=== PATIENT | male | born 1945 | race African-American/Black ===

== ENCOUNTER 2020-08-28 13:16 | Emergency (ER) | payer OTHER ==
[2020-08-28 13:52] VITALS: BMI 16.9
[2020-08-28] MEDS ORDERED: ONDANSETRON 4 MG/2 ML VIAL IVPUSH ONE (16:30)
[2020-08-28] MEDS ORDERED: LACTATED RINGERS SOLUTION 1000 ML INFUS.BAG IV ONE (16:30)
[2020-08-28] MEDS ORDERED: ONDANSETRON 4 MG/2 ML VIAL ONE (16:59)
[2020-08-28 17:29] LABS: BASO % 1.1 % (0-2.0); EOS % 2.2 % (0-4.5); HEMATOCRIT 39.6 % (35.4-49); HEMOGLOBIN 13.1 GM/dL (11.7-16.9); LYMPH % 26.9 % (8-40); MCHC 33.2 g/dl (32.0-35.9); MEAN CELL VOLUME 87.4 fl (80-96); MEAN PLT VOLUME 7.7 fl (7.5-11.1); MONO % 6.7 % (3.8-10.2); NEUT % 63.1 % (42.8-82.8); PLATELET COUNT 267 K/MM3 (134-434); RBC 4.53 M/mm3 (4.00-5.60); RDW 15.9 % (11.9-15.9)
[2020-08-28 17:45] LABS: CHLORIDE 104 mmol/L (98-107); SODIUM 139 mmol/L (136-145)
[2020-08-28 17:47] LABS: CALCIUM 9.9 mg/dL (8.5-10.1)
[2020-08-28 17:48] LABS: ALBUMIN 3.8 g/dl (3.4-5.0); ANION GAP 5 MMOL/L (8-16); BLOOD UREA NITROGEN 21.2 mg/dL (7-18); CO2 29 mmol/L (21-32); GLUCOSE,RANDOM 98 mg/dL (74-106); LIPASE 138 U/L (73-393)
[2020-08-28 17:50] LABS: SGOT/AST 16 U/L (15-37); SGPT/ALT 21 U/L (13-61)
[2020-08-28 17:51] LABS: CREATININE 1.1 mg/dL (0.55-1.3)
[2020-08-28 17:53] LABS: ALK PHOS 98 U/L (45-117); BILIRUBIN,TOTAL 0.4 mg/dL (0.2-1); TOT PROT 7.7 g/dl (6.4-8.2)
[2020-08-28 19:41] VITALS: BP 133/76; PULSE 89; TEMP 98
== END 2020-08-28 20:42 | disposition home or self-care (01) ==
LOC: JER 13:16
PROC: 3E033GC Introduction of Other Therapeutic Substance into Peripheral Vein, Percutaneous Approach (ICD-10-PCS; principal; 2020-08-28)
DX: R11.2 Nausea with vomiting, unspecified (principal)
CPT/HCPCS: 36415; 71046-TC-FY; 74177-TC; 80053; 82550; 83690; 84484; 85025; 93005; 93010; 96374; 99285-25; C9803; Q9967; U0003; U0005

== ENCOUNTER 2023-05-26 14:58 | Inpatient (IN) | payer MEDICARE, OTHER ==
[2023-05-26] MEDS ORDERED: ACETAMINOPHEN 1000 MG/100 ML BAG IVPB ONE (16:46)
[2023-05-26] MEDS ORDERED: ACETAMINOPHEN INJECTION 100 ML IVPB ONE (17:13)
[2023-05-26 17:14] LABS: HEMATOCRIT 42.8 % (35.4-49); HEMOGLOBIN 13.9 GM/dL (11.7-16.9); MCH 29.2 pg (25.7-33.7); MCHC 32.4 g/dl (32.0-35.9); MEAN CELL VOLUME 90.1 fl (80-96); MEAN PLT VOLUME 8.2 fl (7.5-11.1); PLATELET COUNT 395 10^3/uL (134-434); RBC 4.75 M/mm3 (4.00-5.60); RDW 14.6 % (11.9-15.9); WHITE BLOOD COUNT 21.3 K/mm3 (4.0-10.0)
[2023-05-26 17:21] LABS: INR 1.29 (0.83-1.09); PROTHROMBIN TIME (PATIENT) 14.9 SEC (9.7-13.0)
[2023-05-26 17:23] LABS: ACTIVATED PTT 29.3 SECONDS (25.2-36.5)
[2023-05-26 17:42] LABS: CHLORIDE 122 mmol/L (98-107); POTASSIUM 3.9 mmol/L (3.5-5.1); SODIUM 156 mmol/L (136-145)
[2023-05-26 17:44] LABS: CALCIUM 9.7 mg/dL (8.5-10.1)
[2023-05-26 17:45] LABS: ALBUMIN 2.2 g/dl (3.4-5.0); ANION GAP 6 mmol/L (4-13); BLOOD UREA NITROGEN 31.6 mg/dL (7-18); CO2 28 mmol/L (21-32); GLUCOSE,RANDOM 134 mg/dL (74-106)
[2023-05-26 17:48] LABS: CREATININE 1.1 mg/dL (0.55-1.3); SGOT/AST 14 U/L (15-37); SGPT/ALT 13 U/L (13-61)
[2023-05-26 17:49] LABS: TOT PROT 7.6 g/dl (6.4-8.2)
[2023-05-26 17:50] LABS: BILIRUBIN,TOTAL 0.5 mg/dL (0.2-1)
[2023-05-26 17:51] LABS: ALK PHOS 105 U/L (45-117)
[2023-05-26 17:54] LABS: ANISOCYTOSIS 2+; MACROCYTOSIS 0
[2023-05-26] MEDS ORDERED: LACTATED RINGERS SOLUTION 1,000 ML/1,000 ML INFUS.BAG IV STA (17:55)
[2023-05-26] MEDS ORDERED: AZITHROMYCIN IVPB 500 MG in DEXTROSE 5%-WATER - 250 ML IVPB ONE (17:57)
[2023-05-26] MEDS ORDERED: CEFTRIAXONE 1 GM in DEXTROSE 5%-WATER - 100 ML IVPB ONE (17:57)
[2023-05-26] MEDS ORDERED: CEFTRIAXONE 1 GM/50 ML BAG ONE (18:26)
[2023-05-26] MEDS ORDERED: OSELTAMIVIR PHOSPHATE 75 MG CAPSULE PO ONE (22:30)
[2023-05-26] MEDS: QUEtiapine FUMARATE 25 MG TABLET PO SCH (23:00)
[2023-05-26] MEDS ORDERED: AZITHROMYCIN IVPB 500 MG/250 ML BAG IVPB ONE (23:02)
[2023-05-26] MEDS ORDERED: SODIUM PHOSPHATE/NA BIPHOS 133 ML ENEMA RC ONE (23:31)
[2023-05-26] MEDS ORDERED: SODIUM PHOSPHATE/NA BIPHOS 133 ML ENEMA PR ONE (23:31)
[2023-05-26] MEDS ORDERED: ACETAMINOPHEN 1000 MG/100 ML BAG IVPB PRN (23:36)
[2023-05-26 23:59] LABS: EPI CELLS 25 /uL (0-25.1); HYALINE CASTS 3 /uL (0-3.1); PH,URINE 5.5 (5.0-8.0); URINE APPEARANCE CLEAR; URINE BACTERIA 3 /uL (0-1359); URINE BILIRUBIN NEGATIVE (NEGATIVE); URINE COLOR YELLOW; URINE GLUCOSE (UA) NEGATIVE (NEGATIVE); URINE KETONE NEGATIVE (NEGATIVE); URINE LEUK ESTERASE NEGATIVE (NEGATIVE); URINE NITRITE NEGATIVE (NEGATIVE); URINE PROTEIN 2+ (NEGATIVE); URINE RBC 32 /uL (0-23.9); URINE WBC 34 /uL (0-25.8)
[2023-05-27] MEDS: DEXTROSE 5%-WATER - 1,000 ML IV SCH ×2 (00:15→13:42)
[2023-05-27 00:32] LABS: URINE CRYSTALS FEW /hpf
[2023-05-27] MEDS ORDERED: AMPICILLIN NA/SULBACTAM NA 3 GM VIAL ONE (03:42)
[2023-05-27] MEDS ORDERED: DEXTROSE 5%-WATER 100 ML IVPB ONE (03:42)
[2023-05-27] MEDS: DORZOLAMIDE 2% HCL OPHTHALMIC SOLUTION 10 ML BOTTLE OU SCH ×2 (03:52→23:43)
[2023-05-27] MEDS: LATANOPROST 0.005% OPHTH SOLN 2.5ML BOTTLE OU SCH ×2 (03:52→23:43)
[2023-05-27] MEDS: AMPICILLIN NA/SULBACTAM NA 3 GM in SODIUM CHLORIDE 100 ML IVPB SCH ×4 (03:52→20:08)
[2023-05-27 09:50] LABS: BASO % 0.2 % (0-2.0); EOS % 0.3 % (0-4.5); HEMATOCRIT 39.5 % (35.4-49); HEMOGLOBIN 12.6 GM/dL (11.7-16.9); LYMPH % 5.8 % (8-40); MCHC 31.8 g/dl (32.0-35.9); MEAN CELL VOLUME 88.1 fl (80-96); MEAN PLT VOLUME 8.2 fl (7.5-11.1); MONO % 3.3 % (3.8-10.2); NEUT % 90.4 % (42.8-82.8); PLATELET COUNT 334 10^3/uL (134-434); RBC 4.49 M/mm3 (4.00-5.60); RDW 15.1 % (11.9-15.9); WHITE BLOOD COUNT 17.5 K/mm3 (4.0-10.0)
[2023-05-27 09:58] LABS: POTASSIUM 3.6 mmol/L (3.5-5.1)
[2023-05-27] MEDS ORDERED: AZITHROMYCIN IVPB 500 MG/250 ML BAG IVPB SCH (10:00)
[2023-05-27 10:17] LABS: ALBUMIN 1.8 g/dl (3.4-5.0); BLOOD UREA NITROGEN 26.9 mg/dL (7-18); CALCIUM 8.8 mg/dL (8.5-10.1); MAGNESIUM 2.4 mg/dL (1.8-2.4)
[2023-05-27 10:20] LABS: CREATININE 0.7 mg/dL (0.55-1.3); PHOSPHOROUS 2.2 mg/dL (2.5-4.9)
[2023-05-27 10:21] LABS: BILIRUBIN,TOTAL 0.4 mg/dL (0.2-1)
[2023-05-27 10:22] LABS: TOT PROT 6.6 g/dl (6.4-8.2)
[2023-05-27] MEDS: ENOXAPARIN NA (PORCINE) 40 MG/0.4 ML DISP.SYRIN SQ SCH (10:53)
[2023-05-27] MEDS: TAMSULOSIN HCL 0.4 MG CAP PO SCH (10:57)
[2023-05-27] MEDS: POLYETHYLENE GLYCOL (HEALTHYLAX) 3350 17 GM PACKET PO SCH ×2 (10:57→21:52)
[2023-05-27] MEDS: OSELTAMIVIR PHOSPHATE 30 MG CAPSULE PO SCH ×2 (13:36→22:45)
[2023-05-27] MEDS ORDERED: POTASSIUM PHOSPHATE 15 MM in SODIUM CHLORIDE 250 ML IVPB ONE ×2 (14:44→19:15)
[2023-05-27] MEDS ORDERED: DEXTROSE 5%-0.45% SALINE 995 ML with POTASSIUM CHLORIDE 10 MEQ IV SCH (14:45)
[2023-05-27] MEDS: D5-1/2NS+10 MEQ KCL - 10 MEQ/1,000 ML INFUS.BAG IV SCH (16:22)
[2023-05-27] MEDS: QUEtiapine FUMARATE 25 MG TABLET PO SCH (21:52)
[2023-05-28] MEDS: AMPICILLIN NA/SULBACTAM NA 3 GM in SODIUM CHLORIDE 100 ML IVPB SCH ×5 (04:35→22:11)
[2023-05-28] MEDS: TAMSULOSIN HCL 0.4 MG CAP PO SCH (09:27)
[2023-05-28] MEDS: ENOXAPARIN NA (PORCINE) 40 MG/0.4 ML DISP.SYRIN SQ SCH (09:27)
[2023-05-28] MEDS: POLYETHYLENE GLYCOL (HEALTHYLAX) 3350 17 GM PACKET PO SCH ×2 (09:27→22:12)
[2023-05-28] MEDS: OSELTAMIVIR PHOSPHATE 30 MG CAPSULE PO SCH ×2 (09:30→22:59)
[2023-05-28 13:11] LABS: HEMATOCRIT 35.6 % (35.4-49); HEMOGLOBIN 11.4 GM/dL (11.7-16.9); MCH 28.5 pg (25.7-33.7); MCHC 32.1 g/dl (32.0-35.9); MEAN CELL VOLUME 88.7 fl (80-96); MEAN PLT VOLUME 8.9 fl (7.5-11.1); PLATELET COUNT 327 10^3/uL (134-434); RBC 4.02 M/mm3 (4.00-5.60); RDW 14.4 % (11.9-15.9); WHITE BLOOD COUNT 12.5 K/mm3 (4.0-10.0)
[2023-05-28 13:13] LABS: POTASSIUM 3.8 mmol/L (3.5-5.1)
[2023-05-28 13:16] LABS: BLOOD UREA NITROGEN 20.6 mg/dL (7-18)
[2023-05-28 13:17] LABS: ALBUMIN 1.6 g/dl (3.4-5.0)
[2023-05-28 13:19] LABS: CREATININE 0.7 mg/dL (0.55-1.3)
[2023-05-28 13:21] LABS: BILIRUBIN,TOTAL 0.4 mg/dL (0.2-1)
[2023-05-28 13:35] LABS: ANISOCYTOSIS 0; MACROCYTOSIS 0
[2023-05-28] MEDS: D5-1/2NS+10 MEQ KCL - 10 MEQ/1,000 ML INFUS.BAG IV SCH ×2 (13:51→19:33)
[2023-05-28 15:43] VITALS: BMI 15.2
[2023-05-28] MEDS: QUEtiapine FUMARATE 25 MG TABLET PO SCH (22:59)
[2023-05-28] MEDS: DORZOLAMIDE 2% HCL OPHTHALMIC SOLUTION 10 ML BOTTLE OU SCH (23:00)
[2023-05-28] MEDS: LATANOPROST 0.005% OPHTH SOLN 2.5ML BOTTLE OU SCH (23:01)
[2023-05-29] MEDS: AMPICILLIN NA/SULBACTAM NA 3 GM in SODIUM CHLORIDE 100 ML IVPB SCH ×3 (03:21→14:29)
[2023-05-29] MEDS ORDERED: AMINO ACIDS/PROTEIN HYDROLYS 30 ML LIQUID.PKT PO SCH (08:00)
[2023-05-29] MEDS ORDERED: MULTIVITAMINS (DAILY MVI) TABLET (FP) PO SCH (10:00)
[2023-05-29] MEDS ORDERED: ASCORBIC ACID 250 MG TABLET (FP) PO SCH (10:00)
[2023-05-29] MEDS: POLYETHYLENE GLYCOL (HEALTHYLAX) 3350 17 GM PACKET PO SCH (10:10)
[2023-05-29] MEDS: TAMSULOSIN HCL 0.4 MG CAP PO SCH (10:11)
[2023-05-29] MEDS: ENOXAPARIN NA (PORCINE) 40 MG/0.4 ML DISP.SYRIN SQ SCH (10:11)
[2023-05-29] MEDS: OSELTAMIVIR PHOSPHATE 30 MG CAPSULE PO SCH (10:12)
[2023-05-29 11:06] LABS: BASO % 0.2 % (0-2.0); EOS % 1.2 % (0-4.5); HEMATOCRIT 38.6 % (35.4-49); HEMOGLOBIN 12.4 GM/dL (11.7-16.9); LYMPH % 8.4 % (8-40); MCH 28.6 pg (25.7-33.7); MCHC 32.1 g/dl (32.0-35.9); MEAN CELL VOLUME 89.3 fl (80-96); MEAN PLT VOLUME 8.6 fl (7.5-11.1); MONO % 4.2 % (3.8-10.2); PLATELET COUNT 369 10^3/uL (134-434); RBC 4.32 M/mm3 (4.00-5.60); RDW 14.4 % (11.9-15.9)
[2023-05-29 11:19] LABS: POTASSIUM 3.7 mmol/L (3.5-5.1)
[2023-05-29 11:24] LABS: CALCIUM 8.4 mg/dL (8.5-10.1)
[2023-05-29 11:25] LABS: ALBUMIN 1.7 g/dl (3.4-5.0); BLOOD UREA NITROGEN 18.4 mg/dL (7-18)
[2023-05-29 11:27] LABS: CREATININE 0.8 mg/dL (0.55-1.3)
[2023-05-29 11:29] LABS: BILIRUBIN,TOTAL 0.3 mg/dL (0.2-1); TOT PROT 6.5 g/dl (6.4-8.2)
[2023-05-29 16:06] VITALS: BP 128/73; PULSE 84; RESP 20; TEMP 98.2
== END 2023-05-29 15:26 | disposition home health service (06) | DRG 871 ==
LOC: JER 14:58 → JERBED 18:49 → J6S 05-27 05:26 → J8W 05-28 12:50
PROVIDERS: ADMIT Internal Medicine; ATTEND Internal Medicine
DX: A41.9 Sepsis, unspecified organism (principal); G93.41 Metabolic encephalopathy; J69.0 Pneumonitis due to inhalation of food and vomit; E87.0 Hyperosmolality and hypernatremia; F03.90 Unspecified dementia, unspecified severity, without behavioral disturbance, psychotic disturbance, mood disturbance, and anxiety; N40.0 Benign prostatic hyperplasia without lower urinary tract symptoms; H54.8 Legal blindness, as defined in USA; H40.9 Unspecified glaucoma; J11.1 Influenza due to unidentified influenza virus with other respiratory manifestations; K59.00 Constipation, unspecified; E86.0 Dehydration; K21.9 Gastro-esophageal reflux disease without esophagitis
CPT/HCPCS: 0241U-QW; 36415; 70450-TC; 71045-TC-FY; 71260-TC; 74177-TC; 80048; 80053; 81003; 82550; 82553; 83605; 83735; 84100; 84484; 85025; 85610; 85730; 87040; 87086; 87899; 93005; 93010; 99285-25; Q9967

== ENCOUNTER 2023-10-18 15:23 | Inpatient (IN) | payer MEDICARE, OTHER ==
[2023-10-18 17:08] LABS: BASO % 0.4 % (0-2.0); EOS % 0.5 % (0-4.5); HEMATOCRIT 38.2 % (35.4-49); HEMOGLOBIN 12.8 GM/dL (11.7-16.9); LYMPH % 9.6 % (8-40); MCH 28.7 pg (25.7-33.7); MCHC 33.6 g/dl (32.0-35.9); MEAN CELL VOLUME 85.4 fl (80-96); MEAN PLT VOLUME 7.2 fl (7.5-11.1); MONO % 5.4 % (3.8-10.2); NEUT % 84.1 % (42.8-82.8); PLATELET COUNT 450 10^3/uL (134-434); RBC 4.47 M/mm3 (4.00-5.60); RDW 15.7 % (11.9-15.9); WHITE BLOOD COUNT 11.7 K/mm3 (4.0-10.0)
[2023-10-18 17:11] LABS: VENOUS BASE EXCESS 0.3 mmol/L (-2-2); VENOUS PCO2 63.9 mmHg (38-52); VENOUS PH 7.269 (7.310-7.410)
[2023-10-18 17:15] LABS: INR 1.15 (0.83-1.09); PROTHROMBIN TIME (PATIENT) 12.9 SEC (9.7-13.0)
[2023-10-18 17:16] LABS: POTASSIUM 4.7 mmol/L (3.5-5.1)
[2023-10-18 17:18] LABS: ACTIVATED PTT 32.8 SECONDS (25.2-36.5); ALBUMIN 2.9 g/dl (3.4-5.0); CALCIUM 10.1 mg/dL (8.5-10.1)
[2023-10-18 17:19] LABS: BLOOD UREA NITROGEN 22.9 mg/dL (7-18); MAGNESIUM 2.6 mg/dL (1.8-2.4)
[2023-10-18 17:21] LABS: CREATININE 1.1 mg/dL (0.55-1.3)
[2023-10-18 17:23] LABS: BILIRUBIN,TOTAL 0.7 mg/dL (0.2-1)
[2023-10-18 17:26] LABS: VENOUS O2 SATURATION < 70 % (70-80)
[2023-10-18] MEDS ORDERED: ALBUTEROL SO4 2.5/IPRATROPIUM 0.5 INH SOL 3 ML VIAL.NEB. NEB ONE ×2 (17:39→18:33)
[2023-10-18] MEDS: ALBUTEROL SO4 2.5/IPRATROPIUM 0.5 INH SOL 3 ML VIAL.NEB. NEB ONE (17:44)
[2023-10-18] MEDS: ALBUTEROL SO4 2.5/IPRATROPIUM 0.5 INH SOL 3 ML VIAL.NEB. NEB SCH (18:35)
[2023-10-18 19:46] LABS: VENOUS BASE EXCESS 0.7 mmol/L (-2-2); VENOUS PCO2 35.8 mmHg (38-52); VENOUS PH 7.45 (7.310-7.410)
[2023-10-18] MEDS ORDERED: CEFTRIAXONE 1 GM/50 ML BAG ONE (20:48)
[2023-10-18] MEDS: CEFTRIAXONE 1,000 MG in DEXTROSE 5%-WATER - 50 ML IVPB ONE (20:55)
[2023-10-18] MEDS ORDERED: AZITHROMYCIN IVPB 500 MG/250 ML BAG IVPB ONE (21:21)
[2023-10-18] MEDS: AZITHROMYCIN IVPB 500 MG in DEXTROSE 5%-WATER - 250 ML IVPB ONE (21:33)
[2023-10-18] MEDS: SODIUM CHLORIDE 1,000 ML IV STA (22:11)
[2023-10-19 00:38] LABS: EPI CELLS 15 /uL (0-25.1); HYALINE CASTS 1 /uL (0-3.1); PH,URINE 5.5 (5.0-8.0); URINE APPEARANCE CLEAR; URINE BACTERIA 1 /uL (0-1359); URINE BILIRUBIN NEGATIVE (NEGATIVE); URINE COLOR YELLOW; URINE GLUCOSE (UA) NEGATIVE (NEGATIVE); URINE KETONE TRACE (NEGATIVE); URINE LEUK ESTERASE NEGATIVE (NEGATIVE); URINE NITRITE NEGATIVE (NEGATIVE); URINE PROTEIN 2+ (NEGATIVE); URINE RBC 25 /uL (0-23.9); URINE WBC 20 /uL (0-25.8)
[2023-10-19] MEDS: MAGNESIUM CITRATE 300 ML BOTTLE PO ONE (00:41)
[2023-10-19] MEDS: SODIUM CHLORIDE 1,000 ML IV SCH (01:56)
[2023-10-19] MEDS: CEFTRIAXONE 1 GM in DEXTROSE 5%-WATER - 50 ML IVPB SCH (09:42)
[2023-10-19] MEDS: AZITHROMYCIN IVPB 500 MG/250 ML BAG IVPB SCH (09:42)
[2023-10-19] MEDS: ENOXAPARIN NA (PORCINE) 40 MG/0.4 ML DISP.SYRIN SQ SCH (09:42)
[2023-10-19] MEDS: SENNOSIDES 8.6MG TABLET (FP) PO SCH (09:43)
[2023-10-19 09:52] LABS: BASO % 0.2 % (0-2.0); EOS % 0.1 % (0-4.5); HEMOGLOBIN 10.2 GM/dL (11.7-16.9); LYMPH % 7.2 % (8-40); MCH 29.8 pg (25.7-33.7); MEAN CELL VOLUME 87.6 fl (80-96); MEAN PLT VOLUME 7.4 fl (7.5-11.1); MONO % 5.1 % (3.8-10.2); NEUT % 87.4 % (42.8-82.8); PLATELET COUNT 361 10^3/uL (134-434); RBC 3.43 M/mm3 (4.00-5.60); RDW 15.3 % (11.9-15.9); WHITE BLOOD COUNT 12.6 K/mm3 (4.0-10.0)
[2023-10-19 10:22] LABS: POTASSIUM 3.8 mmol/L (3.5-5.1)
[2023-10-19 10:24] LABS: BLOOD UREA NITROGEN 18.3 mg/dL (7-18); CALCIUM 8.9 mg/dL (8.5-10.1)
[2023-10-19 10:27] LABS: CREATININE 0.8 mg/dL (0.55-1.3)
[2023-10-19] MEDS: AMPICILLIN NA/SULBACTAM NA 1.5 GM in SODIUM CHLORIDE 100 ML IVPB SCH (13:38)
[2023-10-19] MEDS ORDERED: ALBUTEROL SO4 2.5/IPRATROPIUM 0.5 INH SOL 3 ML VIAL.NEB. NEB PRN (13:46)
[2023-10-19] MEDS ORDERED: SENNOSIDES 8.6MG TABLET (FP) PO PRN (13:48)
[2023-10-19] MEDS: QUEtiapine FUMARATE 25 MG TABLET PO SCH (21:44)
[2023-10-19] MEDS: DOCUSATE SODIUM 100 MG CAPSULE (FP) PO SCH (21:45)
[2023-10-19] MEDS: DORZOLAMIDE 2% HCL OPHTHALMIC SOLUTION 10 ML BOTTLE OU SCH (21:45)
[2023-10-19] MEDS: LATANOPROST 0.005% OPHTH SOLN 2.5ML BOTTLE OU SCH (21:45)
[2023-10-19] MEDS ORDERED: DORZOLAMIDE 2% HCL OPHTHALMIC SOLUTION 10 ML BOTTLE OD SCH (22:00)
[2023-10-19] MEDS ORDERED: LATANOPROST 0.005% OPHTH SOLN 2.5ML BOTTLE OD SCH (22:00)
[2023-10-20 08:14] LABS: BASO % 0.7 % (0-2.0); EOS % 0.2 % (0-4.5); HEMATOCRIT 30.5 % (35.4-49); HEMOGLOBIN 10.3 GM/dL (11.7-16.9); LYMPH % 9.5 % (8-40); MCH 29.4 pg (25.7-33.7); MCHC 33.7 g/dl (32.0-35.9); MEAN CELL VOLUME 87.4 fl (80-96); MEAN PLT VOLUME 7.6 fl (7.5-11.1); MONO % 5.7 % (3.8-10.2); NEUT % 83.9 % (42.8-82.8); PLATELET COUNT 383 10^3/uL (134-434); RBC 3.48 M/mm3 (4.00-5.60); RDW 14.9 % (11.9-15.9); WHITE BLOOD COUNT 9.5 K/mm3 (4.0-10.0)
[2023-10-20 08:38] LABS: POTASSIUM 3.8 mmol/L (3.5-5.1)
[2023-10-20 08:43] LABS: BLOOD UREA NITROGEN 17.2 mg/dL (7-18); CALCIUM 8.8 mg/dL (8.5-10.1)
[2023-10-20 08:46] LABS: CREATININE 0.8 mg/dL (0.55-1.3)
[2023-10-20 08:47] LABS: TOT PROT 6.4 g/dl (6.4-8.2)
[2023-10-20 08:48] LABS: BILIRUBIN,TOTAL 0.5 mg/dL (0.2-1)
[2023-10-20 09:15] LABS: ALBUMIN 2.2 g/dl (3.4-5.0)
[2023-10-20] MEDS: TAMSULOSIN HCL 0.4 MG CAP PO SCH (09:44)
[2023-10-20] MEDS: AZITHROMYCIN IVPB 500 MG/250 ML BAG IVPB ONE (11:02)
[2023-10-20 16:17] VITALS: BMI 16.3
[2023-10-21 06:52] LABS: POTASSIUM 4.1 mmol/L (3.5-5.1)
[2023-10-21 06:54] LABS: BLOOD UREA NITROGEN 13.7 mg/dL (7-18)
[2023-10-21 06:58] LABS: CREATININE 0.7 mg/dL (0.55-1.3)
[2023-10-22 07:40] LABS: POTASSIUM 4.2 mmol/L (3.5-5.1)
[2023-10-22 07:51] LABS: CALCIUM 8.4 mg/dL (8.5-10.1)
[2023-10-22 07:52] LABS: ALBUMIN 2.1 g/dl (3.4-5.0)
[2023-10-22 07:55] LABS: CREATININE 0.6 mg/dL (0.55-1.3)
[2023-10-22 07:56] LABS: BILIRUBIN,TOTAL 0.6 mg/dL (0.2-1); TOT PROT 5.9 g/dl (6.4-8.2)
[2023-10-22 07:59] LABS: HEMATOCRIT 29.4 % (35.4-49); HEMOGLOBIN 10.2 GM/dL (11.7-16.9); MCH 30.9 pg (25.7-33.7); MCHC 34.8 g/dl (32.0-35.9); MEAN CELL VOLUME 88.8 fl (80-96); MEAN PLT VOLUME 7.4 fl (7.5-11.1); PLATELET COUNT 436 10^3/uL (134-434); RBC 3.31 M/mm3 (4.00-5.60)
[2023-10-22 09:44] LABS: ANISOCYTOSIS 0; MACROCYTOSIS 0
[2023-10-22] MEDS: METOPROLOL TARTRATE 25 MG TABLET (FP) PO ONE (20:07)
[2023-10-22] MEDS: METOPROLOL TARTRATE 25 MG TABLET (FP) PO SCH (21:09)
[2023-10-23] MEDS: AMOX TR/POT CLAV 875MG/125MG TABLETS (FP) PO SCH (17:34)
[2023-10-24] MEDS: METOPROLOL TARTRATE 5 MG/5 ML VIAL IVPUSH ONE (10:49)
[2023-10-25 08:35] LABS: HEMATOCRIT 29.1 % (35.4-49); MCH 29.6 pg (25.7-33.7); MCHC 34.2 g/dl (32.0-35.9); MEAN CELL VOLUME 86.5 fl (80-96); MEAN PLT VOLUME 7.5 fl (7.5-11.1); PLATELET COUNT 501 10^3/uL (134-434); RBC 3.36 M/mm3 (4.00-5.60); WHITE BLOOD COUNT 5.7 K/mm3 (4.0-10.0)
[2023-10-25 08:58] LABS: POTASSIUM 4.2 mmol/L (3.5-5.1)
[2023-10-25 09:11] LABS: BLOOD UREA NITROGEN 6.2 mg/dL (7-18); CALCIUM 8.1 mg/dL (8.5-10.1)
[2023-10-25 09:14] LABS: CREATININE 0.6 mg/dL (0.55-1.3)
[2023-10-25 09:16] LABS: BILIRUBIN,TOTAL 0.5 mg/dL (0.2-1); TOT PROT 5.7 g/dl (6.4-8.2)
[2023-10-25 09:56] LABS: ANISOCYTOSIS 0; HELMET CELLS 0; HOWELL-JOLLY BODIES 0; MACROCYTOSIS 0; OVALOCYTE 0; ROULEAU 0; SICKELED CELLS 0; TARGET CELLS 0; TEAR DROP CELLS 0; TOXIC GRANULATION 0
[2023-10-29 12:19] VITALS: RESP 16
[2023-10-29 13:38] VITALS: BP 112/74; PULSE 64; TEMP 97.9
== END 2023-10-29 14:02 | DRG 871 ==
LOC: JER 15:23 → JERBED 22:11 → J4S 10-19 03:28 → J4W 10-22 00:29
PROVIDERS: ADMIT Internal Medicine; ATTEND Internal Medicine
DX: A41.9 Sepsis, unspecified organism (principal); E43 Unspecified severe protein-calorie malnutrition; J18.9 Pneumonia, unspecified organism; Z68.1 Body mass index [BMI] 19.9 or less, adult; R64 Cachexia; F03.90 Unspecified dementia, unspecified severity, without behavioral disturbance, psychotic disturbance, mood disturbance, and anxiety; N40.0 Benign prostatic hyperplasia without lower urinary tract symptoms; H40.9 Unspecified glaucoma; J44.9 Chronic obstructive pulmonary disease, unspecified; I48.91 Unspecified atrial fibrillation; K59.00 Constipation, unspecified; E86.0 Dehydration
CPT/HCPCS: 0241U-QW; 36415; 71045-TC-FY; 71260-TC; 74177-TC; 80048; 80053; 81003; 82803; 83690; 83735; 84443; 84484; 85025; 85610; 85730; 86850; 86900; 86901; 87086; 87899; 93005; 93010; 93306-TC; 99285-25

== ENCOUNTER 2024-06-30 19:03 | Inpatient (IN) | payer MEDICARE, OTHER ==
[2024-06-30] MEDS ORDERED: METOPROLOL TARTRATE 5 MG/5 ML VIAL ONE ×2 (19:36→21:44)
[2024-06-30 19:39] LABS: HEMOGLOBIN 14.2 GM/dL (11.7-16.9); MCH 27.9 pg (25.7-33.7); MCHC 31.6 g/dl (32.0-35.9); MEAN CELL VOLUME 88.2 fl (80-96); MEAN PLT VOLUME 7.4 fl (7.5-11.1); PLATELET COUNT 416 10^3/uL (134-434); RDW 16.3 % (11.9-15.9); WHITE BLOOD COUNT 14.1 K/mm3 (4.0-10.0)
[2024-06-30] MEDS: METOPROLOL TARTRATE 5 MG/5 ML VIAL IVPUSH PRN (19:41)
[2024-06-30] MEDS: SODIUM CHLORIDE 0.9% 500 ML INFUS.BAG IV ONE ×2 (19:42→20:44)
[2024-06-30] MEDS ORDERED: ACETAMINOPHEN INJECTION 100 ML ONE (19:45)
[2024-06-30] MEDS: ACETAMINOPHEN 1000 MG/100 ML BAG IVPB ONE (19:47)
[2024-06-30 19:48] LABS: INR 1.08 (0.83-1.09); PROTHROMBIN TIME (PATIENT) 11.8 SEC (9.7-13.0)
[2024-06-30 20:03] LABS: CHLORIDE 117 mmol/L (98-107); SODIUM 148 mmol/L (136-145)
[2024-06-30 20:05] LABS: CALCIUM 9.1 mg/dL (8.5-10.1)
[2024-06-30 20:06] LABS: ALBUMIN 2.3 g/dl (3.4-5.0); ANION GAP 2 mmol/L (4-13); BLOOD UREA NITROGEN 40.7 mg/dL (7-18); CO2 29 mmol/L (21-32); GLUCOSE,RANDOM 140 mg/dL (74-106); MAGNESIUM 2.8 mg/dL (1.8-2.4); POTASSIUM 7.2 mmol/L (3.5-5.1)
[2024-06-30 20:09] LABS: CREATININE 1.2 mg/dL (0.55-1.3); SGOT/AST 129 U/L (15-37)
[2024-06-30 20:10] LABS: BILIRUBIN,TOTAL 0.7 mg/dL (0.2-1)
[2024-06-30 20:11] LABS: TOT PROT 7.6 g/dl (6.4-8.2)
[2024-06-30 20:12] LABS: ALK PHOS 108 U/L (45-117)
[2024-06-30 20:17] LABS: SGPT/ALT 88 U/L (13-61)
[2024-06-30] MEDS ORDERED: METOPROLOL TARTRATE 25 MG TABLET (FP) ONE (20:45)
[2024-06-30 20:47] LABS: LACTIC ACID 2.2 mmol/L (0.4-2.0)
[2024-06-30] MEDS: METOPROLOL TARTRATE 25 MG TABLET (FP) PO ONE (20:54)
[2024-06-30 20:56] LABS: VENOUS BASE EXCESS 3.1 mmol/L (-2-2); VENOUS O2 SATURATION 83.5 % (70-80); VENOUS PCO2 45.4 mmHg (38-52); VENOUS PH 7.412 (7.310-7.410)
[2024-06-30 20:58] LABS: URINE APPEARANCE BLOODY; URINE COLOR RED
[2024-06-30 20:59] LABS: URINE BILIRUBIN NEGATIVE (NEGATIVE); URINE GLUCOSE (UA) NEGATIVE (NEGATIVE)
[2024-06-30 21:02] LABS: URINE PROTEIN 100 (NEGATIVE)
[2024-06-30 21:08] LABS: EPI CELLS 0.8 /uL (0-25.1); URINE RBC 7549.4 /uL (0-23.9); URINE WBC 20.4 /uL (0-25.8)
[2024-06-30 21:11] LABS: ANISOCYTOSIS 3+; MACROCYTOSIS 0
[2024-06-30 21:15] LABS: URINE BACTERIA 8.4 /uL (0-1359)
[2024-06-30 21:43] LABS: POTASSIUM 3.9 mmol/L (3.5-5.1)
[2024-06-30 21:44] LABS: CALCIUM 8.4 mg/dL (8.5-10.1)
[2024-06-30 21:45] LABS: BLOOD UREA NITROGEN 38.6 mg/dL (7-18)
[2024-06-30 21:48] LABS: CREATININE 1.1 mg/dL (0.55-1.3)
[2024-06-30] MEDS ORDERED: CEFTRIAXONE 1 G/50 ML PREMIX 50 ML IVPB ONE (22:04)
[2024-06-30] MEDS ORDERED: AZITHROMYCIN IVPB 500 MG/250 ML BAG IVPB ONE (22:04)
[2024-06-30] MEDS ORDERED: dilTIAZem HCL 125 MG/25 ML - 25 ML VIAL ONE ×2 (22:18→23:02)
[2024-06-30] MEDS: CEFTRIAXONE 1 GM in DEXTROSE 5%-WATER - 100 ML IVPB ONE (22:29)
[2024-06-30] MEDS: dilTIAZem HCL 50 MG/10 ML - 10 ML VIAL IVPUSH ONE ×2 (22:29→23:07)
[2024-06-30] MEDS: AZITHROMYCIN IVPB 500 MG in DEXTROSE 5%-WATER - 250 ML IVPB ONE (22:50)
[2024-06-30] MEDS ORDERED: dilTIAZem HCL 60 MG TABLET ONE (22:54)
[2024-06-30] MEDS: dilTIAZem HCL 60 MG TABLET PO ONE (23:01)
[2024-07-01] MEDS ORDERED: dilTIAZem HCL 125 MG/25 ML - 25 ML VIAL ONE (00:21)
[2024-07-01] MEDS: dilTIAZem HCL 50 MG/10 ML - 10 ML VIAL IVPUSH ONE (00:30)
[2024-07-01] MEDS ORDERED: HEPARIN NA (PORCINE) 5,000 UNITS/ML 1ML VIAL IVPUSH PRN (00:57)
[2024-07-01] MEDS ORDERED: ACETAMINOPHEN 1000 MG/100 ML BAG IVPB PRN (02:00)
[2024-07-01] MEDS: SODIUM CHLORIDE 0.45% 1,000 ML IV SCH ×2 (02:08→12:43)
[2024-07-01] MEDS: HEPARIN INFUSION - 25,000 UNIT/500 ML INFUS.BAG IVPB SCH (02:42)
[2024-07-01 07:32] LABS: HEMATOCRIT 38.7 % (35.4-49); HEMOGLOBIN 12.3 GM/dL (11.7-16.9); MCH 28.1 pg (25.7-33.7); MCHC 31.7 g/dl (32.0-35.9); MEAN CELL VOLUME 88.8 fl (80-96); MEAN PLT VOLUME 7.6 fl (7.5-11.1); PLATELET COUNT 282 10^3/uL (134-434); RBC 4.36 M/mm3 (4.00-5.60); RDW 16.3 % (11.9-15.9); WHITE BLOOD COUNT 12.3 K/mm3 (4.0-10.0)
[2024-07-01 07:51] LABS: POTASSIUM 3.8 mmol/L (3.5-5.1)
[2024-07-01 07:53] LABS: CALCIUM 8.2 mg/dL (8.5-10.1)
[2024-07-01 07:54] LABS: BLOOD UREA NITROGEN 30.2 mg/dL (7-18)
[2024-07-01 07:57] LABS: CREATININE 0.7 mg/dL (0.55-1.3)
[2024-07-01 07:58] LABS: BILIRUBIN,TOTAL 0.4 mg/dL (0.2-1)
[2024-07-01 07:59] LABS: TOT PROT 5.7 g/dl (6.4-8.2)
[2024-07-01] MEDS: dilTIAZem HCL 60 MG TABLET PO SCH ×2 (08:02→12:59)
[2024-07-01] MEDS: HEPARIN NA (PORCINE) 5,000 UNITS/ML 1ML VIAL IVPUSH PRN (08:02)
[2024-07-01] MEDS: TAMSULOSIN HCL 0.4 MG CAP PO SCH (09:05)
[2024-07-01] MEDS: CEFTRIAXONE 1 G/50 ML PREMIX 50 ML IVPB SCH (09:05)
[2024-07-01] MEDS ORDERED: dilTIAZem HCL 60 MG TABLET PO SCH ×2 (09:14→09:17)
[2024-07-01] MEDS: AZITHROMYCIN IVPB 500 MG/250 ML BAG IVPB SCH (09:58)
[2024-07-01] MEDS: HEPARIN SOD,PORK IN 0.45% NACL 25,000 UNIT/500 ML INFUS.BAG IVPB SCH (11:36)
[2024-07-01] MEDS: METOPROLOL TARTRATE 5 MG/5 ML VIAL IVPUSH ONE ×2 (12:42→23:27)
[2024-07-01] MEDS: APIXABAN 2.5 MG TABLET PO ONE (12:43)
[2024-07-01] MEDS: DORZOLAMIDE 2% HCL OPHTHALMIC SOLUTION 10 ML BOTTLE OD SCH (12:59)
[2024-07-01 16:00] VITALS: BMI 15.5
[2024-07-01] MEDS: APIXABAN 2.5 MG TABLET PO SCH (21:08)
[2024-07-01] MEDS: LATANOPROST 0.005% OPHTH SOLN 2.5ML BOTTLE OU SCH (21:09)
[2024-07-01] MEDS ORDERED: APIXABAN 5 MG TABLET PO SCH (22:00)
[2024-07-01] MEDS ORDERED: DORZOLAMIDE 2% HCL OPHTHALMIC SOLUTION 10 ML BOTTLE OD SCH (22:00)
[2024-07-02 07:10] LABS: HEMATOCRIT 39.3 % (35.4-49); HEMOGLOBIN 12.8 GM/dL (11.7-16.9); MCH 28.4 pg (25.7-33.7); MCHC 32.5 g/dl (32.0-35.9); MEAN CELL VOLUME 87.2 fl (80-96); MEAN PLT VOLUME 7.5 fl (7.5-11.1); PLATELET COUNT 315 10^3/uL (134-434); RBC 4.51 M/mm3 (4.00-5.60); RDW 15.8 % (11.9-15.9)
[2024-07-02 07:31] LABS: POTASSIUM 3.9 mmol/L (3.5-5.1)
[2024-07-02 07:34] LABS: CALCIUM 8.3 mg/dL (8.5-10.1)
[2024-07-02 07:35] LABS: BLOOD UREA NITROGEN 22.2 mg/dL (7-18); MAGNESIUM 2.2 mg/dL (1.8-2.4)
[2024-07-02 07:38] LABS: CREATININE 0.7 mg/dL (0.55-1.3)
[2024-07-02 07:39] LABS: BILIRUBIN,TOTAL 0.5 mg/dL (0.2-1); PHOSPHOROUS 2.1 mg/dL (2.5-4.9); TOT PROT 5.8 g/dl (6.4-8.2)
[2024-07-02] MEDS: AZITHROMYCIN IVPB 500 MG/250 ML BAG IVPB SCH (09:58)
[2024-07-02] MEDS: CEFTRIAXONE 1 G/50 ML PREMIX 50 ML IVPB SCH (09:58)
[2024-07-02] MEDS: TAMSULOSIN HCL 0.4 MG CAP PO SCH (09:59)
[2024-07-02] MEDS: APIXABAN 2.5 MG TABLET PO SCH (09:59)
[2024-07-02] MEDS: METOPROLOL TARTRATE 5 MG/5 ML VIAL IVPUSH PRN (10:50)
[2024-07-02] MEDS ORDERED: FLU VACCINE (FLULAVAL) PF 45 MCG/0.5 ML SYRINGE 2024-2025 IM ONE (12:00)
[2024-07-02] MEDS: dilTIAZem HCL 60 MG TABLET PO SCH (13:05)
[2024-07-02] MEDS: DORZOLAMIDE 2% HCL OPHTHALMIC SOLUTION 10 ML BOTTLE OD SCH (13:06)
[2024-07-02] MEDS: POTASSIUM PHOSPHATE 15 MM in DEXTROSE 5%-WATER - 250 ML IVPB ONE (13:32)
[2024-07-02] MEDS: LATANOPROST 0.005% OPHTH SOLN 2.5ML BOTTLE OU SCH (21:19)
[2024-07-04] MEDS ORDERED: FLU VACCINE (FLULAVAL) PF 45 MCG/0.5 ML SYRINGE 2024-2025 IM ONE (20:30)
[2024-07-05 08:11] LABS: POTASSIUM 4.2 mmol/L (3.5-5.1)
[2024-07-05 08:20] LABS: CALCIUM 8.3 mg/dL (8.5-10.1); HEMOGLOBIN 11.9 GM/dL (11.7-16.9); MCH 28.1 pg (25.7-33.7); MCHC 32.9 g/dl (32.0-35.9); MEAN CELL VOLUME 85.4 fl (80-96); MEAN PLT VOLUME 8.2 fl (7.5-11.1); PLATELET COUNT 154 10^3/uL (134-434); RBC 4.22 M/mm3 (4.00-5.60); RDW 15.6 % (11.9-15.9); WHITE BLOOD COUNT 9.5 K/mm3 (4.0-10.0)
[2024-07-05 08:21] LABS: BLOOD UREA NITROGEN 13.5 mg/dL (7-18)
[2024-07-05 08:22] LABS: CREATININE 0.8 mg/dL (0.55-1.3)
[2024-07-05 08:24] LABS: BILIRUBIN,TOTAL 0.4 mg/dL (0.2-1); TOT PROT 5.3 g/dl (6.4-8.2)
[2024-07-05 09:37] LABS: ANISOCYTOSIS 0; MACROCYTOSIS 0
[2024-07-06 07:41] LABS: HEMATOCRIT 42.6 % (35.4-49); HEMOGLOBIN 14.4 GM/dL (11.7-16.9); MCH 28.5 pg (25.7-33.7); MCHC 33.9 g/dl (32.0-35.9); MEAN CELL VOLUME 83.9 fl (80-96); PLATELET COUNT 152 10^3/uL (134-434); RBC 5.07 M/mm3 (4.00-5.60); RDW 16.1 % (11.9-15.9); WHITE BLOOD COUNT 13.7 K/mm3 (4.0-10.0)
[2024-07-06 08:00] LABS: POTASSIUM 4.4 mmol/L (3.5-5.1)
[2024-07-06 08:09] LABS: BLOOD UREA NITROGEN 14.2 mg/dL (7-18); CALCIUM 8.9 mg/dL (8.5-10.1)
[2024-07-06 08:12] LABS: ALBUMIN 2.5 g/dl (3.4-5.0)
[2024-07-06 08:14] LABS: BILIRUBIN,TOTAL 0.5 mg/dL (0.2-1); CREATININE 0.9 mg/dL (0.55-1.3)
[2024-07-06 08:17] LABS: TOT PROT 6.9 g/dl (6.4-8.2)
[2024-07-06 09:43] LABS: ANISOCYTOSIS 0; HELMET CELLS 0; HOWELL-JOLLY BODIES 0; MACROCYTOSIS 0; OVALOCYTE 0; ROULEAU 0; SICKELED CELLS 0; TARGET CELLS 0; TEAR DROP CELLS 0; TOXIC GRANULATION 0
[2024-07-07 07:03] LABS: HEMOGLOBIN 13.4 GM/dL (11.7-16.9); MCH 28.3 pg (25.7-33.7); MCHC 33.4 g/dl (32.0-35.9); MEAN CELL VOLUME 84.8 fl (80-96); MEAN PLT VOLUME 9.1 fl (7.5-11.1); PLATELET COUNT 113 10^3/uL (134-434); RBC 4.72 M/mm3 (4.00-5.60); RDW 16.3 % (11.9-15.9); WHITE BLOOD COUNT 10.2 K/mm3 (4.0-10.0)
[2024-07-07 07:20] LABS: POTASSIUM 4.2 mmol/L (3.5-5.1)
[2024-07-07 07:26] LABS: ALBUMIN 2.4 g/dl (3.4-5.0); BLOOD UREA NITROGEN 13.1 mg/dL (7-18); CALCIUM 8.4 mg/dL (8.5-10.1)
[2024-07-07 07:28] LABS: CREATININE 0.8 mg/dL (0.55-1.3)
[2024-07-07 07:31] LABS: BILIRUBIN,TOTAL 0.5 mg/dL (0.2-1); TOT PROT 6.5 g/dl (6.4-8.2)
[2024-07-08] MEDS: DIGOXIN 0.5 MG/2 ML AMPUL IVPUSH ONE ×2 (16:39→21:21)
[2024-07-09] MEDS ORDERED: DIGOXIN 0.5 MG/2 ML AMPUL ONE (06:34)
[2024-07-09] MEDS: DIGOXIN 0.5 MG/2 ML AMPUL IVPUSH ONE ×2 (06:34→11:56)
[2024-07-09] MEDS ORDERED: METOPROLOL TARTRATE 5 MG/5 ML VIAL IVPB PRN (20:31)
[2024-07-09] MEDS: dilTIAZem HCL 60 MG TABLET PO SCH (22:23)
[2024-07-09] MEDS: DORZOLAMIDE 2% HCL OPHTHALMIC SOLUTION 10 ML BOTTLE OD SCH (22:24)
[2024-07-09] MEDS: LATANOPROST 0.005% OPHTH SOLN 2.5ML BOTTLE OU SCH (22:31)
[2024-07-09] MEDS: APIXABAN 2.5 MG TABLET PO SCH (22:38)
[2024-07-09] MEDS: HALOPERIDOL LACTATE 5 MG/ML IM ONE (22:39)
[2024-07-10] MEDS: TAMSULOSIN HCL 0.4 MG CAP PO SCH (08:55)
[2024-07-10 09:26] LABS: HEMATOCRIT 37.4 % (35.4-49); HEMOGLOBIN 12.7 GM/dL (11.7-16.9); MCH 28.4 pg (25.7-33.7); MCHC 33.9 g/dl (32.0-35.9); MEAN CELL VOLUME 83.8 fl (80-96); MEAN PLT VOLUME 8.7 fl (7.5-11.1); PLATELET COUNT 116 10^3/uL (134-434); RBC 4.46 M/mm3 (4.00-5.60); RDW 16.7 % (11.9-15.9); WHITE BLOOD COUNT 7.1 K/mm3 (4.0-10.0)
[2024-07-10 09:30] LABS: POTASSIUM 4.4 mmol/L (3.5-5.1)
[2024-07-10 09:37] LABS: ALBUMIN 2.5 g/dl (3.4-5.0); CALCIUM 8.9 mg/dL (8.5-10.1)
[2024-07-10 09:38] LABS: BLOOD UREA NITROGEN 16.6 mg/dL (7-18); MAGNESIUM 2.1 mg/dL (1.8-2.4)
[2024-07-10 09:41] LABS: BILIRUBIN,TOTAL 0.6 mg/dL (0.2-1); CREATININE 0.9 mg/dL (0.55-1.3); PHOSPHOROUS 2.6 mg/dL (2.5-4.9); TOT PROT 6.4 g/dl (6.4-8.2)
[2024-07-10] MEDS ORDERED: DIGOXIN 0.25 MG TABLET PO SCH ×2 (10:00)
[2024-07-10] MEDS: DIGOXIN 0.25 MG TABLET PO SCH (10:33)
[2024-07-10 11:05] LABS: ANISOCYTOSIS 0; MACROCYTOSIS 0
[2024-07-12 09:57] VITALS: BP 102/90; PULSE 72; RESP 17; TEMP 97.8
== END 2024-07-12 15:55 | disposition home or self-care (01) | DRG 871 ==
LOC: JER 19:03 → JERBED 23:18 → JICU 07-01 01:09 → J2W 07-01 22:55 → J6S 07-09 19:53
PROVIDERS: ADMIT Student in an Organized Health Care Education/Training Program; ATTEND Internal Medicine
DX: A41.9 Sepsis, unspecified organism (principal); E43 Unspecified severe protein-calorie malnutrition; J18.9 Pneumonia, unspecified organism; I48.92 Unspecified atrial flutter; E87.0 Hyperosmolality and hypernatremia; Z68.1 Body mass index [BMI] 19.9 or less, adult; I24.89 Other forms of acute ischemic heart disease; I47.10 Supraventricular tachycardia, unspecified; F03.90 Unspecified dementia, unspecified severity, without behavioral disturbance, psychotic disturbance, mood disturbance, and anxiety; N40.0 Benign prostatic hyperplasia without lower urinary tract symptoms; H40.9 Unspecified glaucoma; E86.0 Dehydration; I48.0 Paroxysmal atrial fibrillation
CPT/HCPCS: 0241U-QW; 36415; 71045-TC-FY; 80048; 80053; 80061; 80162; 81003; 82803; 82962; 83605; 83735; 84100; 84443; 84484; 85025; 85027; 85610; 85730; 87040; 87086; 93005; 93010; 93306-TC; 97116-GP; 97162-GP; 99285-25; J0131; J1644